=== PATIENT | male | born 1985 | race Native Hawaiian/Other Pacific Islander ===

== ENCOUNTER 2016-10-09 17:06 | Observation (INO) | payer MEDICAID ==
[~2016-10-09] VITALS: Ht 172.7 cm; Wt 65.0 kg
[~2016-10-09 17:06] MED LIST: BACL20TA PO; LACT PO; METHE500 PO; NITR-29 PO; NITR50CA27 PO; OXYBXL5 PO
[2016-10-09 17:10] VITALS: BP 125/73; PULSE 103; RESP 20; TEMP 99.3; O2SAT 100
[2016-10-09] MEDS ORDERED: SODIUM CHLORIDE 0.9% FLUSH 10 ML FLUSH IVF PRN (17:30)
[2016-10-09] MEDS ORDERED: SODIUM CHLOR 0.9% 1000 ML INJ 1,000 ML IV ONE (17:30)
[2016-10-09] MEDS ORDERED: CIPROFLOXACIN 400 MG PREMIX 200 ML IV ONE (17:30)
[2016-10-09] MEDS ORDERED: BACL20TA PO (17:31)
[2016-10-09] MEDS ORDERED: VITA100064 PO (17:31)
[2016-10-09] MEDS ORDERED: METHE500 PO (17:31)
[2016-10-09] MEDS ORDERED: NITR1CAP36 PO (17:31)
[2016-10-09] MEDS ORDERED: OXYB5TAB10 PO (17:31)
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
[2016-10-09 18:21] LABS: HEMATOCRIT 43.8 % (39.0-51.0); RED BLOOD COUNT 7.04 MIL/MM3 (4.50-5.90); WHITE BLOOD COUNT 12.5 TH/MM3 (4.0-11.0)
[2016-10-09 18:22] LABS: AUTOMATED NEUTROPHIL # 9.5 TH/MM3 (1.8-7.7); BASOPHIL % 0.2 % (0.0-2.0); EOSINOPHIL % 0.2 % (0.0-4.0); HEMO FLAGS DIFF FINAL; LYMPH % 15.4 % (9.0-44.0); LYMPHOCYTE # 1.9 TH/MM3 (1.0-4.8); MEAN CELL VOLUME 62.2 FL (80.0-100.0); MEAN CORPUSCULAR HEMOGLOBIN 19.1 PG (27.0-34.0); MEAN CORPUSCULAR HGB CONC 30.7 % (32.0-36.0); MONO % 8.6 % (0.0-8.0); NEUT % 75.6 % (16.0-70.0); PLATELET COUNT 269 TH/MM3 (150-450); RED CELL DISTRIBUTION WIDTH 15.8 % (11.6-17.2)
[2016-10-09 18:30] LABS: BICARBONATE 23.2 MEQ/L (21.0-32.0); POTASSIUM 3.5 MEQ/L (3.5-5.1)
[2016-10-09 19:00] VITALS: BP 120/72; PULSE 92; RESP 18; O2SAT 100
--- NOTE | 2016-10-09 19:02 | RADRPT ---
EXAM DATE/TIME: 10/09/2016 18:22 [facility] COMPARISON: US TESTICLE W/DOPPLER, January 05, 2016, 16:17. INDICATIONS : Scrotal pain. MEDICAL HISTORY : Paraplegic. Self catheterization. MRSA. SURGICAL HISTORY : Spinal fusion. IVC filter. Left femur repair. ENCOUNTER: Subsequent ACUITY: 2 days PAIN SCORE: 9/10 LOCATION: Bilateral scrotum. MEASUREMENTS: RIGHT TESTICLE: 3.4 x 2.5 x 1.7cm LEFT TESTICLE: 4.0 x 3.1 x 2.5cm FINDINGS: RIGHT TESTICLE: Homogeneous echotexture without intra or extratesticular mass. Blood flow is symmetric and within no rmal limits. No varicocele. There is a small hydrocele. Epididymis is within normal limits. LEFT TESTICLE: The left testicle is larger than the right with a homogeneous echotexture without intra or extratesti cular mass. Significantly increased blood flow to the left testicle compared to the right consistent with hyperemia. There are possible small varices. There is a small hydrocele. Epididymis is within no rmal limits. SCROTUM: Within normal limits. CONCLUSION: 1. Left testicle is enlarged compared to the right with significantly increased blood flow consistent with hyperemia. This could indicate orchitis. There is no focal mass. 2. Small hydroceles and possible small left varices. Robbin Neff MD on October 09, 2016 at 18:57 Board Certified Radiologist. This report was verified electronically.
[2016-10-09 19:13] LABS: BLOOD, URINE NEG (NEG); GLUCOSE,URINE NEG (NEG); KETONE, URINE 40 mg/dL (NEG); NITRITE,URINE NEG (NEG); SQUAMOUS EPITHELIAL CELL URINE <1 /hpf (0-5); URINE COLOR YELLOW (YELLW/STRAW)
[2016-10-09 19:26] LABS: COMMENT (UR) CULT NOT INDICATED; CULTURE IF INDICATED CULT NOT INDICATED
[2016-10-09] MEDS ORDERED: SODIUM CHLORIDE 0.9% FLUSH 10 ML FLUSH IV FLUSH PRN (20:15)
[2016-10-09] MEDS ORDERED: metroNIDAZOLE 500 MG INJ 100 ML IV SCH (20:15)
[2016-10-09] MEDS ORDERED: NALOXONE HCL 0.4 MG/ML AMP IV PRN (20:15)
[2016-10-09] MEDS: SODIUM CHLORIDE 0.9% FLUSH 10 ML FLUSH IV FLUSH SCH (21:13)
[2016-10-09] MEDS ORDERED: ALUMINUM/MAGNESIUM/SIMETH 30 ML CUP PO PRN (21:30)
--- NOTE | 2016-10-09 21:51 | RADRPT ---
EXAM DATE/TIME: 10/09/2016 21:48 [facility] COMPARISON: No previous studies available for comparison. INDICATIONS : Chest pain. MEDICAL HISTORY : None. SURGICAL HISTORY : Spinal fusion. ENCOUNTER: Initial ACUITY: 4 - 6 days PAIN SCORE: 3/10 LOCATION: middle chest. FINDINGS: A single view of the chest demonstrates the lungs to be symmetrically aerated without evidence of mas s, infiltrate or effusion. The cardiomediastinal contours are unremarkable. Osseous structures are intact. Postsurgical changes are noted in the thoracic spine status post multilevel fusion. CONCLUSION: No acute disease. Robbin Neff MD on October 09, 2016 at 21:49 Board Certified Radiologist. This report was verified electronically.
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
[2016-10-09] MEDS: PANTOPRAZOLE SOD 40 MG DELAYED RELEASE TAB PO SCH (22:08)
[2016-10-09] MEDS: ENOXAPARIN SODIUM 40 MG/0.4 ML SYRINGE SQ SCH (22:10)
[2016-10-09] MEDS: BACLOFEN 20 MG TAB PO SCH (22:10)
[2016-10-09] MEDS: ONDANSETRON HCL 4 MG/2 ML VIAL IV PUSH PRN (22:11)
[2016-10-09 22:25] VITALS: BP 98/54; PULSE 78; RESP 18; TEMP 98; O2SAT 99
[2016-10-10] VITALS (9 sets, daily range): BP systolic 105–117; BP diastolic 58–68; PULSE 62–85; RESP 16–18; TEMP 98–98.6; O2SAT 97–100
[2016-10-10 07:23] LABS: AUTOMATED NEUTROPHIL # 3.8 TH/MM3 (1.8-7.7); BASOPHIL % 0.5 % (0.0-2.0); EOSINOPHIL # 0.1 TH/MM3 (0-0.4); EOSINOPHIL % 1.2 % (0.0-4.0); HEMATOCRIT 38.2 % (39.0-51.0); HEMO FLAGS DIFF FINAL; LYMPH % 27.7 % (9.0-44.0); LYMPHOCYTE # 1.8 TH/MM3 (1.0-4.8); MEAN CELL VOLUME 61.8 FL (80.0-100.0); MEAN CORPUSCULAR HEMOGLOBIN 19.8 PG (27.0-34.0); MONO % 12.3 % (0.0-8.0); NEUT % 58.3 % (16.0-70.0); PLATELET COUNT 267 TH/MM3 (150-450); RED BLOOD COUNT 6.18 MIL/MM3 (4.50-5.90); RED CELL DISTRIBUTION WIDTH 15.7 % (11.6-17.2); WHITE BLOOD COUNT 6.5 TH/MM3 (4.0-11.0)
[2016-10-10 07:51] LABS: ANION GAP 7 MEQ/L (5-15); BICARBONATE 27.2 MEQ/L (21.0-32.0); BLOOD UREA NITROGEN 8 MG/DL (7-18); CHLORIDE 107 MEQ/L (98-107); GLOMERULAR FILTRATION RATE 76 ML/MIN (>89); POTASSIUM 3.9 MEQ/L (3.5-5.1); SODIUM (NA) 141 MEQ/L (136-145)
[2016-10-10] MEDS: CIPROFLOXACIN 400 MG PREMIX 200 ML IV SCH ×2 (08:31→20:41)
[2016-10-10] MEDS: OXYBUTYNIN CHLORIDE 5 MG TAB PO SCH (08:31)
[2016-10-10] MEDS: BACLOFEN 20 MG TAB PO SCH ×2 (08:31→20:41)
[2016-10-10] MEDS: PANTOPRAZOLE SOD 40 MG DELAYED RELEASE TAB PO SCH (08:31)
[2016-10-10] MEDS: SODIUM CHLORIDE 0.9% FLUSH 10 ML FLUSH IV FLUSH SCH ×2 (08:32→20:41)
[2016-10-10] MEDS: ONDANSETRON HCL 4 MG/2 ML VIAL IV PUSH PRN (09:41)
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
--- NOTE | 2016-10-10 10:31 | HHI.PR ---
Subjective Remarks Follow-up for epididymoorchitis. The patient is doing better today. He reports that testicular swelling and pressure are improving. He states that prior to admission he was having fever, vomiting, and pain/pressure radiating from his testicles up to his abdomen into his lower chest. He denies any further chest pain. He states that nausea has improved and no further vomiting , although still doesn't have much appetite. He cannot try to eat today. He denies any further fevers. He denies any swallowing problems with speech therapy today. Objective Vitals Vital Signs Date Time Temp Pulse Resp B/P Pulse Ox O2 Delivery O2 Flow Rate FiO2 10/10/16 08:41 98.3 85 16 108/64 99 10/10/16 04:00 72 10/10/16 03:42 98.0 72 18 106/68 97 10/10/16 00:00 72 10/09/16 22:25 98.0 78 18 98/54 99 10/09/16 19:00 92 18 120/72 100 Room Air 10/09/16 17:25 99 18 10/09/16 17:10 99.3 103 20 125/73 100 Room Air Result Diagram: 10/10/16 0702 10/10/16 0702 Imaging Last Impressions Scrotum Ultrasound 10/09/16 1727 Signed Impressions: Service Date/Time: September 18:22 - CONCLUSION: 1. Left testicle is enlarged compared to the right with significantly increased blood flow consistent with hyperemia. This could indicate orchitis. There is no focal mass. 2. Small hydroceles and possible small left varices. Robbin Neff MD Chest X-Ray 10/09/16 0000 Signed Impressions: Service Date/Time: September 21:48 - CONCLUSION: No acute disease. Robbin Neff MD Objective Remarks GENERAL: Well-developed well-nourished. In no acute distress. SKIN: Warm and dry. No lesions noted. HEENT: Normocephalic. Pupils equal and round. Mucous membranes pink and moist. CARDIOVASCULAR: Regular rate and rhythm. No murmur appreciated. RESPIRATORY: No accessory muscle use. Clear to auscultation. Breath sounds equal bilaterally. GASTROINTESTINAL: Abdomen soft, non-tender, nondistended. Bowel sounds x4. : Left testicle is enlarged and erythematous. MUSCULOSKELETAL: No obvious deformities. No clubbing or cyanosis. No edema. NEUROLOGICAL: Awake and alert. Lower extremity paraplegia. Moves upper extremities spontaneously. Normal speech. PSYCHIATRIC: Appropriate mood and affect; insight and judgment normal. A/P Problem List: (1) Epididymo-orchitis ICD Code: N45.3 Status: Acute (2) Atypical chest pain ICD Code: R07.89 Status: Resolved (3) Nausea ICD Code: R11.0 Status: Acute Assessment and Plan 30-year-old male with T9 complete paraplegia, self-catheterization who presented with testicle swelling and pressure Epididymoorchitis Reviewed: Testicular ultrasound with enlarged left testicle and findings indicating orchitis; small hydroceles and possible small left varices. WBCs 12.5, trended down to 6.5. Tmax 99.3. Lactic acid 1.1. UA negative. - Consulted Dr. Osborn, urologist - assistance appreciated - Ciprofloxacin 400 mg IV every 12 hours, plan to change to oral when better tolerating oral intake - Repeat CBC in a.m. and follow trends Atypical chest pain - No significant risk factors for ACS, suspect referred abdominal pain vs from intractable vomiting Reviewed: ACS ruled out per protocol with unremarkable serial cardiac enzymes and EKGs. Chest x-ray clear - Protonix 40 mg by mouth daily - Mylanta prn - Speech therapy consulted, reportedly no restrictions Intractable nausea and vomiting, likely secondary to infection as above, improving - Supportive care with IVF and antiemetics as needed DVT prophylaxis - Lovenox 40 mg subcutaneous every 24 hours Discharge Planning Likely discharge planning tomorrow a.m. if patient continues to improve. Ned Stewart Oct 10, 2016 10:31
[2016-10-10] MEDS: SODIUM CHLOR 0.9% 1000 ML INJ 1,000 ML IV SCH (10:56)
[2016-10-10] MEDS: ENOXAPARIN SODIUM 40 MG/0.4 ML SYRINGE SQ SCH (20:41)
[2016-10-11] MEDS: SODIUM CHLOR 0.9% 1000 ML INJ 1,000 ML IV SCH ×2 (00:23→15:36)
[2016-10-11 03:35] VITALS: BP 96/52; PULSE 60; RESP 18; TEMP 98; O2SAT 100
[2016-10-11 05:41] LABS: AUTOMATED NEUTROPHIL # 2.9 TH/MM3 (1.8-7.7); BASOPHIL % 0.5 % (0.0-2.0); EOSINOPHIL # 0.1 TH/MM3 (0-0.4); EOSINOPHIL % 2.2 % (0.0-4.0); HEMATOCRIT 36.8 % (39.0-51.0); HEMO FLAGS DIFF FINAL; LYMPH % 37.2 % (9.0-44.0); LYMPHOCYTE # 2.2 TH/MM3 (1.0-4.8); MEAN CELL VOLUME 61.8 FL (80.0-100.0); MEAN CORPUSCULAR HEMOGLOBIN 19.9 PG (27.0-34.0); MEAN CORPUSCULAR HGB CONC 32.1 % (32.0-36.0); MONO % 11.1 % (0.0-8.0); PLATELET COUNT 262 TH/MM3 (150-450); RED BLOOD COUNT 5.96 MIL/MM3 (4.50-5.90); RED CELL DISTRIBUTION WIDTH 15.6 % (11.6-17.2)
[2016-10-11 05:42] LABS: BICARBONATE 23.8 MEQ/L (21.0-32.0); POTASSIUM 3.8 MEQ/L (3.5-5.1)
[2016-10-11 08:12] VITALS: BP 92/53; PULSE 59; RESP 16; TEMP 97.7; O2SAT 99
[2016-10-11] MEDS: BACLOFEN 20 MG TAB PO SCH (08:55)
[2016-10-11] MEDS: PANTOPRAZOLE SOD 40 MG DELAYED RELEASE TAB PO SCH (08:55)
[2016-10-11] MEDS: OXYBUTYNIN CHLORIDE 5 MG TAB PO SCH (08:55)
[2016-10-11] MEDS: CIPROFLOXACIN 400 MG PREMIX 200 ML IV SCH (08:56)
--- NOTE | 2016-10-11 08:56 | HHI.PR ---
Subjective Remarks Follow-up for epididymoorchitis. The patient states that he woke up extremely lightheaded and dizzy today. He states it is starting to improve. He denies any chest pain or shortness of breath. He hasn't had much in appetite, but has been tolerating diet with no vomiting. He does report constipation for past 5 days, states he normally has to manually disimpact stool at baseline. He states his left testicle still swollen, but does seem a little bit better today. Objective Vitals Vital Signs Date Time Temp Pulse Resp B/P Pulse Ox O2 Delivery O2 Flow Rate FiO2 10/11/16 08:12 97.7 59 16 92/53 99 10/11/16 03:35 98.0 60 18 96/52 100 10/10/16 23:57 98.0 63 18 105/60 97 10/10/16 19:13 98.0 62 18 111/58 100 10/10/16 15:55 98.6 68 18 115/58 99 10/10/16 11:40 98.3 85 18 117/59 100 Result Diagram: 10/11/16 0428 10/11/16 0428 Imaging Last Impressions Scrotum Ultrasound 10/09/16 1727 Signed Impressions: Service Date/Time: September 18:22 - CONCLUSION: 1. Left testicle is enlarged compared to the right with significantly increased blood flow consistent with hyperemia. This could indicate orchitis. There is no focal mass. 2. Small hydroceles and possible small left varices. Robbin Neff MD Chest X-Ray 10/09/16 0000 Signed Impressions: Service Date/Time: September 21:48 - CONCLUSION: No acute disease. Robbin Neff MD Objective Remarks GENERAL: Well-developed well-nourished. In no acute distress. SKIN: Warm and dry. No lesions noted. HEENT: Normocephalic. Pupils equal and round. Mucous membranes pink and moist. CARDIOVASCULAR: Regular rate and rhythm. No murmur appreciated. RESPIRATORY: No accessory muscle use. Clear to auscultation. Breath sounds equal bilaterally. GASTROINTESTINAL: Abdomen soft, non-tender, nondistended. Bowel sounds x4. : Left testicle is enlarged and erythematous, more soft today. MUSCULOSKELETAL: No obvious deformities. No clubbing or cyanosis. No edema. NEUROLOGICAL: Awake and alert. Lower extremity paraplegia. Moves upper extremities spontaneously. Normal speech. PSYCHIATRIC: Appropriate mood and affect; insight and judgment normal. A/P Problem List: (1) Epididymo-orchitis ICD Code: N45.3 Status: Acute (2) Atypical chest pain ICD Code: R07.89 Status: Resolved (3) Nausea ICD Code: R11.0 Status: Acute Assessment and Plan 30-year-old male with T9 complete paraplegia, self-catheterization who presented with testicle swelling and pressure Epididymoorchitis Reviewed: Testicular ultrasound with enlarged left testicle and findings indicating orchitis; small hydroceles and possible small left varices. WBCs 12.5, trended down to 6. Tmax 99.3, no further fevers. Lactic acid 1.1. UA negative. - Consulted Dr. Osborn, urologist, clear from urology perspective for discharge and outpatient follow-up when stable - Ciprofloxacin 400 mg IV every 12 hours, plan to change to oral at DC Atypical chest pain - No significant risk factors for ACS, suspect referred abdominal pain vs from intractable vomiting. No further pain. Reviewed: ACS ruled out per protocol with unremarkable serial cardiac enzymes and EKGs. Chest x-ray clear - Protonix 40 mg by mouth daily - Mylanta prn - Speech therapy consulted, no restrictions Intractable nausea and vomiting, likely secondary to infection as above, improving - Supportive care with IVF and antiemetics as needed FREDERICK: Creatinine 1.22 to admission, trended down to 0.89 with IVF. Improved. Hypotension/lightheadedness: Suspect secondary to poor oral intake. Continue IVF. Monitor. Constipation: Due to paraplegia, the patient has to manually disimpact bowels at baseline. Also poor oral intake over the past week. Start bowel regimen with Colace and give milk of magnesia 1 now. We'll give MiraLAX if no further BM today. DVT prophylaxis - Lovenox 40 mg subcutaneous every 24 hours Discharge Planning Discharge planning when clinically improved, possibly later today. 1500 patient reassessed, states lightheadedness improved after he empties his bladder, which is typical to him. No further lightheadedness. Tolerating oral intake better today. He hasn't had a BM today despite cathartics and laxatives. He would like to go home today after he has a BM, requesting enema. Discussed with RN, will give enema 1. Hopefully discharge after BM. Ned Stewart Oct 11, 2016 08:56 Ned Stewart Oct 11, 2016 08:56
[2016-10-11] MEDS: SODIUM CHLORIDE 0.9% FLUSH 10 ML FLUSH IV FLUSH SCH (09:00)
[2016-10-11] MEDS ORDERED: DOCUSATE SODIUM 50 MG/SENNA 8.6 MG TAB PO SCH (09:00)
[2016-10-11] MEDS ORDERED: MAGNESIUM HYDROXIDE SUSP 30 ML CUP PO ONE (09:00)
[2016-10-11 11:45] VITALS: BP 92/55; PULSE 60; RESP 17; TEMP 98.2; O2SAT 100
[2016-10-11] MEDS ORDERED: POLYETHYLENE GLYCOL 17 GM PKG PO ONE (13:45)
[2016-10-11] MEDS ORDERED: METHE500 PO (15:09)
[2016-10-11] MEDS ORDERED: SENN1TAB PO (15:09)
[2016-10-11] MEDS ORDERED: LEVO500T8 PO (15:09)
[2016-10-11] MEDS ORDERED: NITR1CAP36 PO (15:09)
[2016-10-11] MEDS ORDERED: SOD PHOSPHATE/SOD BIPHOSPHATE (ADULT) ENEMA 133ML RECTAL ONE (15:15)
[2016-10-11 16:26] VITALS: PULSE 54
[2016-10-11 16:35] VITALS: BP 103/66; PULSE 50; RESP 16; TEMP 98; O2SAT 100
== END 2016-10-11 16:43 | disposition home or self-care (01) ==
LOC: NEPD 17:06 → NEDA 20:11 → INTOOBSV 20:11 → NEPHCDU 21:48
PROVIDERS: ADMIT Hospitalist; ATTEND Hospitalist
DX: N45.3 Epididymo-orchitis (principal); R50.9 Fever, unspecified; Z87.440 Personal history of urinary (tract) infections; G82.21 Paraplegia, complete; Z79.899 Other long term (current) drug therapy; N43.3 Hydrocele, unspecified; R07.89 Other chest pain; R61 Generalized hyperhidrosis; N31.9 Neuromuscular dysfunction of bladder, unspecified
CPT/HCPCS: 71010; 76870; 80048; 81001; 83605; 83735; 84484; 85025; 87040; 92610; 93975; 96365; 97161; 99285; G0378; G8987; G8988; G8996; G8997; G8998; J0744; J1650; J2405; J7030